=== PATIENT | female | born 1975 | race Hispanic/Latino ===

== ENCOUNTER → 2021-05-01 08:35 | Outpatient (CLI) | payer OTHER, SELFPAY ==
[2021-05-01 10:39] LABS: Amphetamine Urine VISTA NEGATIVE (<1000 ng/mL); Barbiturate Urine VISTA NEGATIVE (< 200 ng/mL); Benzodiazepine Urine VISTA NEGATIVE (< 200 ng/mL); Cocaine Urine VISTA NEGATIVE (< 300 ng/mL); Ecstacy Urine VISTA NEGATIVE (< 500 ng/mL); Methadone Urine VISTA NEGATIVE (< 300 ng/mL); PCP Urine VISTA NEGATIVE (< 25 ng/mL); THC Urine VISTA NEGATIVE (< 50 ng/mL); Vista UDS pH Range 6
== END ==
PROVIDERS: Visit Provider Family Medicine
DX: Z02.89 Encounter for other administrative examinations (principal)
CPT/HCPCS: 80307

== ENCOUNTER → 2022-04-02 | Outpatient (CLI) | payer OTHER, SELFPAY ==
[2022-04-02 16:12] LABS: Free T3 2.2 pg/mL (2.18-3.98); T4 Free Direct 1.19 ng/dL (0.76-1.46); Thyroid Stim Hormone (TSH) 3.03 uIU/mL (0.358-3.74)
[2022-04-02 18:06] LABS: Hemoglobin A1c 5.8 % (3.8-5.6)
== END | disposition home or self-care (01) ==
LOC: MFPLAB 12:39
PROVIDERS: PCP Family Medicine; Visit Provider Family Medicine
DX: E03.9 Hypothyroidism, unspecified (principal); R63.5 Abnormal weight gain; R79.89 Other specified abnormal findings of blood chemistry
CPT/HCPCS: 36415; 82533; 83036; 84439; 84443; 84481